=== PATIENT | male | born 1940 | race Caucasian/White ===

== ENCOUNTER 2020-01-08 05:02 | Day surgery (SDC) | payer OTHER ==
[2020-01-07 13:03] VITALS: BMI 33.9
[2020-01-08] MEDS ORDERED: PROPOFOL 20 ML ONE (10:06)
[2020-01-08] MEDS ORDERED: LIDOCAINE HCL/PF 2% SDV 5ML VIAL ONE (10:06)
[2020-01-08] MEDS ORDERED: MIDAZOLAM HCL 2 MG/2 ML SINGLE DOSE VIAL ONE (10:06)
[2020-01-08] MEDS ORDERED: DEXAMETHASONE SOD PHOSPHATE 4 MG/1 ML VIAL ONE (10:06)
[2020-01-08] MEDS ORDERED: ceFAZolin SODIUM 1 GM VIAL IVPB ONE (10:33)
--- NOTE | 2020-01-08 10:56 | OP ---
Operative Note - Note: Operative Date: 01/08/20 Pre-Operative Diagnosis: bladder stones Operation: cystolithotripsy Findings: 2cm bladder stone Post-Operative Diagnosis: Same as Pre-op Surgeon: Addie Jameson Anesthesia: General Specimens Removed: urine, stones Estimated Blood Loss (mls): 0 Instrument used (Debridements only): 0 Drains & Tubes with Location: 0 Drains, Volume Out (mls): 0 Blood Volume Replaced (mls): 0 Fluid Volume Replaced (mls): 0 Operative Report Dictated: Yes
[2020-01-08] MEDS ORDERED: ONDANSETRON 4 MG/2 ML VIAL IVPUSH PRN (12:33)
[2020-01-08 13:32] VITALS: BP 175/77; PULSE 71; TEMP 96.9
--- NOTE | 2020-01-09 11:13 | OP ---
DATE OF OPERATION: 01/08/2020 PREOPERATIVE DIAGNOSIS: Recurrent urinary tract infection, hematuria, micturition dressed, bladder stone. POSTOPERATIVE DIAGNOSIS: Recurrent urinary tract infection, hematuria, micturition dressed, bladder stone. OPERATIVE PROCEDURE: Cystourethroscopy, cystoscopy, laser lithotripsy, and irrigation of bladder stones. ANESTHESIA: General. DESCRIPTION OF PROCEDURE: Under above-stated anesthesia, patient is prepped and draped in the usual sterile manner. He is placed in the supine position. Cystoscopy under direct vision revealed a normal anterior urethra. Prostatic urethra was open. Bladder was entered. Urine was collected for culture as well as cytology. Inspection of the bladder revealed a grade 1 trabeculation. There was a 2-cm bladder stone and multiple tiny ones measuring between 1 and 3 mm. No lesions were seen. Ureteral orifices were within normal limits with efflux of clear urine. A laser was introduced. The stone was fragmented into multiple fragments. An TabUp evacuator was used, and the stone was irrigated and sent to pathology. No active bleeding was noted. Therefore, the bladder was emptied, the scope was removed. The patient tolerated the procedure well. He returned to the recovery room in good condition. Moira [id number]
--- NOTE | 2020-01-13 17:56 | PATH ---
Surgical Pathology Report Patient Name: VANITA HOLLAND [facility]. Rec. #: [id number] /Age/Gender: 1940 (Age: 79) / M Account: [id number] Location: [facility] SURGICAL Taken: 01/08/2020 Received: 01/08/2020 Reported: 01/13/2020 Physicians: Addie Jameson M.D. Specimen(s) Received BLADDER STONE Clinical History Microscopic hematuria, calculus in bladder Final Diagnosis BLADDER STONE, LITHOTRIPSY: BLADDER CALCULI. MACROSCOPIC DIAGNOSIS. Electronically Signed Vicky Ortiz M.D. Gross Description Received fresh labeled "bladder stone," are 2 jones-orange, irregular calculi measuring 0.2 and 0.9 cm in greatest dimension. No soft tissue is present. No sections are submitted, gross only. /01/08/2020 [facility]/08[facility]
--- NOTE | 2020-01-14 16:06 | PATH ---
Cytology Non-Gynecological Report Patient Name: VANITA HOLLAND [facility]. Rec. #: [id number] /Age/Gender: 1940 (Age: 79) / M Account: [id number] Location: [facility] SURGICAL Taken: 01/11/2020 Received: 01/11/2020 Reported: 01/14/2020 Physicians: Addie Jameson M.D. Specimen(s) Received URINE Clinical History Bladder stone Final Diagnosis URINE FOR CYTOLOGY: SATISFACTORY FOR EVALUATION. NEGATIVE FOR HIGH GRADE UROTHELIAL CARCINOMA. SCATTERED UROTHELIAL CELLS, UROTHELIAL FRAGMENTS, AND MANY RED BLOOD CELLS PRESENT. Comment: Urothelial fragments are suggestive of prior instrumentation, lithiasis, or a low grade papillary neoplasm. Suggest clinical/radiologic correlation. See concurrent pathology material [id number]. Electronically Signed Milad Rhodes M.D. Gross Description Approximately 100cc of yellow fluid received fresh. One cytospin prepared.
[2020-01-20 15:12] LABS: SIZE 10x8 mm; URIC ACID 100; WEIGHT 375 mg
== END 2020-01-08 13:40 | disposition home or self-care (01) ==
LOC: JASU-SURG 05:02
PROVIDERS: ATTEND Urology
PROC: 0TCB8ZZ Extirpation of Matter from Bladder, Via Natural or Artificial Opening Endoscopic (ICD-10-PCS; principal; 2020-01-08 09:00)
DX: N21.0 Calculus in bladder (principal); R39.198 Other difficulties with micturition; R31.9 Hematuria, unspecified; Z87.440 Personal history of urinary (tract) infections
CPT/HCPCS: 36415; 82360; 82962; 87086; 88108; 88300-TC; 94760